=== PATIENT | male | born 1985 | race Caucasian/White ===

== ENCOUNTER 2016-11-22 20:57 | Emergency (ER) | payer OTHER ==
[2016-11-22 21:03] VITALS: BP 127/77; PULSE 105; RESP 16; O2SAT 95
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
[2016-11-22] MEDS ORDERED: Ondansetron 2 mg/mL 2 mL Inj IVPUSH PRN (21:10)
[2016-11-22] MEDS ORDERED: 0.9% Sodium Chloride 1,000 ML IV ONE (21:10)
[2016-11-22 21:49] LABS: BASOPHILS % (AUTO) 0.4 % (0-3); EOSINOPHILS % (AUTO) 1.8 % (0-5); MONOCYTES % (AUTO) 8.5 % (4-12); Mean Corpuscular Hemoglobin 31.1 pg (27.0-35.0); Mean Corpuscular Volume 87.7 fL (81-100); Platelet Count 265 bil/L (150-400)
[2016-11-22 22:31] LABS: INR 0.98 ratio
[2016-11-22 22:42] LABS: Magnesium 2.7 mg/dL (1.6-2.6)
[2016-11-23] MEDS ORDERED: IBUP-1827 PO (00:12)
[2016-11-23 00:25] VITALS: BP 110/50; PULSE 89; RESP 16; O2SAT 96
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
== END 2016-11-23 00:33 | disposition home or self-care (01) ==
LOC: SED 20:57
DX: S02.2XXA Fracture of nasal bones, initial encounter for closed fracture (principal); S00.83XA Contusion of other part of head, initial encounter; Y04.0XXA Assault by unarmed brawl or fight, initial encounter; Y93.89 Activity, other specified; Y92.019 Unspecified place in single-family (private) house as the place of occurrence of the external cause; Y99.8 Other external cause status; R10.9 Unspecified abdominal pain; F10.129 Alcohol abuse with intoxication, unspecified; F12.10 Cannabis abuse, uncomplicated
CPT/HCPCS: 36415; 70450; 70486; 71260; 72125; 74177; 80053; 82075; 83690; 83735; 85025; 85610; 85730; 96361; 96374; 96375; 99285; G0480; J1885; J2405; J7030; Q9967